=== PATIENT | female | born 1970 | race American Indian/Alaskan Native ===

== ENCOUNTER 2019-02-19 13:56 | Inpatient (IN) | payer MEDICAID, OTHER ==
[2019-02-19] MEDS ORDERED: Digoxin 500 mcg/2ml (0.5 mg/2ml) Inj ONE (14:27)
[2019-02-19] MEDS ORDERED: Digoxin 500 mcg/2ml (0.5 mg/2ml) Inj IVP ONE (14:29)
[2019-02-19 14:35] VITALS: PULSE 120
--- NOTE | 2019-02-19 14:36 | ED PDOC ---
HPI: SOB/CHF/COPD Time Seen by Provider: 02/19/19 14:28 Chief Complaint (Nursing): Shortness Of Breath Chief Complaint (Provider): Shortness Of Breath History Per: Patient History/Exam Limitations: no limitations Onset/Duration Of Symptoms: Days (x1) Current Symptoms Are (Timing): Still Present Additional Complaint(s): 48 year old female with medical history of hypertension and hypothyroidism, presents to the emergency department with a complaint of palpitations associated with shortness of breath and chest heaviness since 0900 earlier today. She denies any nausea, vomiting, or dizziness. PCP: none provided Past Medical History Reviewed: Historical Data, Nursing Documentation, Vital Signs Vital Signs: Last Vital Signs Temp 95.1 F L 02/19/19 14:02 Pulse 163 H 02/19/19 14:02 Resp 19 02/19/19 14:02 BP 148/76 02/19/19 14:02 Pulse Ox 100 02/19/19 14:02 - Medical History PMH: HTN, Hypothyroidism - Family History Family History: States: Unknown Family Hx - Allergies Allergies/Adverse Reactions: Allergies Allergy/AdvReac Type Severity Reaction Status Date / Time No Known Allergies Allergy Verified 02/19/19 14:07 Review of Systems ROS Statement: Except As Marked, All Systems Reviewed And Found Negative Cardiovascular: Positive for: Chest Pain (heaviness), Palpitations Respiratory: Positive for: Shortness of Breath Gastrointestinal: Negative for: Nausea, Vomiting Neurological: Negative for: Dizziness Physical Exam - Reviewed Nursing Documentation Reviewed: Yes Vital Signs Reviewed: Yes - Physical Exam Cardiovascular/Chest: Positive for: Tachycardia (@160 BMP), Irregularly Irregular Respiratory: Positive for: Normal Breath Sounds. Negative for: Wheezing, Respiratory Distress - ECG O2 Sat by Pulse Oximetry: 100 (RA) Pulse Ox Interpretation: Normal Medical Decision Making Medical Decision Making: Time: 1428 Initial Plan: * EKG * Labs * CXR * IV fluids Time: 1433 --EKG: Atrial fibrillation with rapid ventricular response at 100s-160s. Nonspecific ST changes. B/P at 148/75. Patient treated with 25mg Cardizem IVP and 0.5mg Lanoxin IVP. Time: 1435 --Repeat vitals: slowed to ventricular response of 100s-160s. B/P at 119/74. Additional Eliquis PO ordered. Patient is admitted to telemetry unit under Dr. Marquez's service for observation for further treatment of hypertension and Afib with RVR. Scribe Attestation: Documented by Layne Chow, acting as a scribe for Tam Eric MD. Provider Scribe Attestation: All medical record entries made by the Scribe were at my direction and personally dictated by me. I have reviewed the chart and agree that the record accurately reflects my personal performance of the history, physical exam, medical decision making, and the department course for this patient. I have also personally directed, reviewed, and agree with the discharge instructions and disposition. Disposition - Clinical Impression Clinical Impression: Atrial fibrillation with RVR - Patient ED Disposition Is Patient to be Admitted: Yes - Disposition Disposition Time: 14:53 Condition: FAIR Forms: [email or web address] (Libyan) - Pt Status Changed To: Hospital Disposition Of: Inpatient - Admit Certification Admit to Inpatient:: After my assessment, the patient will require hospitalization for at least two midnights. This is because of the severity of symptoms shown, intensity of services needed, and/or the medical risk in this patient being treated as an outpatient. - POA Present On Arrival: None
[2019-02-19 14:52] LABS: BASO # 0.1 K/uL (0.0-0.2); BASO % 0.9 % (0.0-2.0); EOS % 0.5 % (0.0-4.0); HEMOGLOBIN 12.6 g/dL (12.0-16.0); LYMPH # 3.5 K/uL (1.0-4.3); LYMPH % 34.3 % (20.0-40.0); MEAN CELL VOLUME 90.1 fl (81.0-99.0); MEAN CORPUSCULAR HEMOGLOBIN 29.9 pg (27.0-31.0); MEAN CORPUSCULAR HGB CONC 33.2 g/dL (33.0-37.0); MEAN PLATELET VOLUME 9.4 fl (7.2-11.7); MONO # 0.7 K/uL (0.0-0.8); MONO % 6.7 % (0.0-10.0); NEUT # 5.8 K/uL (1.8-7.0); NEUT % 57.6 % (50.0-75.0); NRBC % 0.1 % (0.0-0.0); RBC 4.22 Mil/uL (3.80-5.20); RED CELL DISTRIBUTION WIDTH 14.5 % (11.5-14.5); WHITE BLOOD COUNT 10.1 K/uL (4.8-10.8)
[2019-02-19 15:14] LABS: ALB/GLOB RATIO 1.2 (1.0-2.1); ALBUMIN 4.7 g/dL (3.5-5.0); BLOOD UREA NITROGEN 13 mg/dl (7-17); CALCIUM 9.4 mg/dL (8.4-10.2); GFR NON-AFRICAN AMERICAN > 60
[2019-02-19 15:19] LABS: ALT/SGPT 23 U/L (9-52); AST/SGOT 26 U/L (14-36)
--- NOTE | 2019-02-19 15:27 | CP.PCM.HP ---
<JenniferCarlos - Last Filed: 02/19/19 15:32> History of Present Illness - History of Present Illness History of Present Illness: 48 y/o F with a PMHx of HTN presented to ED complaining of palpitations that began last night. Pt reports some mild SOB since this morning. Pt was found to have Atrial fibrillation at ED. Pt reports extensive family Hx of thyroid disorders. Pt recently moved from [place]. Pt denies fever, chills, hot/cold intolerance, visual disturbances, chest pain, nausea, vomiting, abdominal pain, diarrhea, constipation. --LMP 2 weeks ago, Menses are regular every month with normal blood loss as per pt. PMD: None NKDA Meds: Amlodipine 10mg PO daily, Zolpidem 5mg PO HS PRN. -PMHx: HTN and insomnia -PSHx: Tonsilectomy -FHx: Mother , had DM2, hypothyroidism and CHF. 1 sister has hyperthyroidism and another siter has hypothyroidism. -SHx: No tobacco. Occasional alcohol. No rec drugs. ED Course: --Vital signs: HR 163, RR 26. --troponin neg x1. --EKG showed Afib with RVR --CXR will be performed. --Cardizen 25mg IV administered. Present on Admission - Present on Admission Any Indicators Present on Admission: No History of DVT/PE: No History of Uncontrolled Diabetes: No Review of Systems - Constitutional Constitutional: absent: Chills, Fatigue, Fever - EENT Eyes: absent: Change in Vision Nose/Mouth/Throat: absent: Nasal Congestion, Sore Throat, Tongue Swelling, Neck Pain, Neck Mass - Cardiovascular Cardiovascular: Palpitations. absent: Chest Pain, Claudication, Diaphoresis, Leg Edema - Respiratory Respiratory: Dyspnea. absent: Cough, Snoring - Gastrointestinal Gastrointestinal: absent: Abdominal Pain, Constipation, Diarrhea, Dyspepsia, Nausea, Vomiting - Genitourinary Genitourinary: absent: Dysuria, Flank Pain, Nocturia - Neurological Neurological: absent: Abnormal Movements, Frequent Falls, Headaches, Tremor, Weakness Past Patient History - Infectious Disease Hx of Infectious Diseases: None - Past Social History Smoking Status: Never Smoked - CARDIAC Hx Hypertension: Yes - ENDOCRINE/METABOLIC Hx Hypothyroidism: Yes - PSYCHIATRIC Hx Substance Use: No - SURGICAL HISTORY Hx Surgeries: Yes Hx Tonsillectomy: Yes Meds Allergies/Adverse Reactions: Allergies Allergy/AdvReac Type Severity Reaction Status Date / Time No Known Allergies Allergy Verified 02/19/19 14:07 Results - Vital Signs Recent Vital Signs: Last Vital Signs Temp 95.1 F L 02/19/19 14:02 Pulse 99 H 02/19/19 14:55 Resp 17 02/19/19 14:35 BP 120/89 02/19/19 14:55 Pulse Ox 100 02/19/19 14:55 - Labs Result Diagrams: 02/19/19 14:30 02/19/19 14:30 Labs: Laboratory Results - last 24 hr 02/19/19 02/19/19 14:30 14:30 WBC 10.1 RBC 4.22 Hgb 12.6 Hct 38.0 MCV 90.1 MCH 29.9 MCHC 33.2 RDW 14.5 Plt Count 283 MPV 9.4 Neut % (Auto) 57.6 Lymph % (Auto) 34.3 [place] % (Auto) 6.7 Eos % (Auto) 0.5 Baso % (Auto) 0.9 Neut # (Auto) 5.8 Lymph # (Auto) 3.5 [place] # (Auto) 0.7 Eos # (Auto) 0.0 Baso # (Auto) 0.1 Sodium 140 Potassium 4.2 Chloride 104 Carbon Dioxide 23 Anion Gap 17 BUN 13 Creatinine 0.7 Est GFR ( Amer) > 60 Est GFR (Non-Af Amer) > 60 Random Glucose 113 H Calcium 9.4 Total Bilirubin 0.5 AST 26 ALT 23 Alkaline Phosphatase 100 Troponin I < 0.0120 Total Protein 8.8 H Albumin 4.7 Globulin 4.1 H Albumin/Globulin Ratio 1.2 Assessment & Plan - Assessment and Plan (Free Text) Assessment: 48 y/o F with a PMHx of HTN and morbid obesity is admitted for evaluation and management of atrial fibrillation with rapid ventricular response. PLAN: >Atrial Fibrillation with RVR --New onset --S/P rate control with Cardizem. --Admit to telemetry --Cardiac continuous monitoring. --Cardiology consult, Dr Lisette Newman. --Eliquis ordered. --Thyroid panel ordered. >Essential HTN --Chronic, controlled --C/w home meds: PO Amlodipine >Morbid obesity --HbA1c and lipid ordered --Thyroid panel ordered. >Insomnia --C/w home medL PRN Zolpidem 5mg. >DVT Prophylaxis --SCD --Eliquis initiated. Case discussed with Dr Jimmy Rodriguez PGY-2 - Date & Time Date: 02/19/19 Time: 15:53 <Brando Marquez - Last Filed: 02/20/19 15:11> Results - Vital Signs Recent Vital Signs: Last Vital Signs Temp 97.7 F 02/20/19 13:00 Pulse 93 H 02/20/19 13:00 Resp 18 02/20/19 13:00 BP 122/78 02/20/19 13:00 Pulse Ox 94 L 02/20/19 13:00 - Labs Result Diagrams: 02/20/19 04:25 02/20/19 04:25 Labs: Laboratory Results - last 24 hr 02/19/19 02/19/19 02/19/19 14:30 16:05 16:05 WBC RBC Hgb Hct MCV MCH MCHC RDW Plt Count Sodium 140 Potassium 4.2 Chloride 104 Carbon Dioxide 23 Anion Gap 17 BUN 13 Creatinine 0.7 Est GFR ( Amer) > 60 Est GFR (Non-Af Amer) > 60 Random Glucose 113 H Hemoglobin A1c 5.6 Calcium 9.4 Phosphorus Magnesium Total Bilirubin 0.5 AST 26 ALT 23 Alkaline Phosphatase 100 Troponin I < 0.0120 Total Protein 8.8 H Albumin 4.7 Globulin 4.1 H Albumin/Globulin Ratio 1.2 Triglycerides 78 Cholesterol 170 LDL Cholesterol Direct 100 HDL Cholesterol 50 Free T4 Total T3 2.11 TSH 3rd Generation 0.73 02/19/19 02/20/19 02/20/19 16:05 04:25 04:25 WBC 6.8 RBC 3.85 Hgb 11.7 L Hct 34.6 MCV 89.9 MCH 30.5 MCHC 33.9 RDW 14.8 H Plt Count 258 Sodium 137 Potassium 3.8 Chloride 104 Carbon Dioxide 24 Anion Gap 13 BUN 9 Creatinine 0.7 Est GFR ( Amer) > 60 Est GFR (Non-Af Amer) > 60 Random Glucose 103 Hemoglobin A1c Calcium 9.0 Phosphorus 3.7 Magnesium 2.0 Total Bilirubin 0.6 AST 20 ALT 25 Alkaline Phosphatase 84 Troponin I Total Protein 7.4 Albumin 3.9 Globulin 3.5 Albumin/Globulin Ratio 1.1 Triglycerides Cholesterol LDL Cholesterol Direct HDL Cholesterol Free T4 1.02 Total T3 TSH 3rd Generation Assessment & Plan - Assessment and Plan (Free Text) Assessment: Patient was personally seen and examined by me in rounds with residents. Available labs and diagnostic data reviewed. Case, Patient's condition and management plan discussed with residents in rounds. Agree with resident's progress note. Plan: As ordered.
--- NOTE | 2019-02-19 16:13 | RAD ---
Date of service: 02/19/2019 HISTORY: afib rvr COMPARISON: No prior. FINDINGS: LUNGS: The lungs are well inflated and clear. PLEURA: No pleural effusions or pneumothorax. CARDIOVASCULAR: There is mild cardiomegaly. No aortic atherosclerotic calcifications present. OSSEOUS STRUCTURES: Within normal limits for the patient's age. VISUALIZED UPPER ABDOMEN: Normal. OTHER FINDINGS: None. IMPRESSION: No active pulmonary disease.
[2019-02-19 17:24] LABS: T3 2.11 nmol/L (1.49-2.60)
--- NOTE | 2019-02-19 23:44 | CARD ---
APPROVED REPORT Date of service: 02/19/2019 EKG Measurement Heart [id number] <Conclusion> Atrial fibrillation with rapid ventricular response Nonspecific ST and T wave abnormality Abnormal ECG
[2019-02-20 06:06] LABS: HEMOGLOBIN 11.7 g/dL (12.0-16.0); MEAN CELL VOLUME 89.9 fl (81.0-99.0); MEAN CORPUSCULAR HEMOGLOBIN 30.5 pg (27.0-31.0); MEAN CORPUSCULAR HGB CONC 33.9 g/dL (33.0-37.0); RBC 3.85 Mil/uL (3.80-5.20); RED CELL DISTRIBUTION WIDTH 14.8 % (11.5-14.5); WHITE BLOOD COUNT 6.8 K/uL (4.8-10.8)
[2019-02-20 06:30] LABS: ALB/GLOB RATIO 1.1 (1.0-2.1); ALBUMIN 3.9 g/dL (3.5-5.0); ALT/SGPT 25 U/L (9-52); AST/SGOT 20 U/L (14-36); BLOOD UREA NITROGEN 9 mg/dl (7-17); GFR NON-AFRICAN AMERICAN > 60
--- NOTE | 2019-02-20 09:18 | CP.PCM.CON ---
History of Present Illness - History of Present Illness History of Present Illness: 48 y/o b/f admitted with Atrial fibrillation w/ RVR pt has never had this before EKG on admission: AF w/ RVR Telemetry: AF @ 80-85 BPM on cardizem drip Troponin: neg PMH: HTN Hypothyroid Meds: amlodipine 10mg Daily Past Patient History - Infectious Disease Hx of Infectious Diseases: None - Past Medical History & Family History Past Medical History?: Yes - Past Social History Smoking Status: Never Smoked - CARDIAC Hx Atrial Fibrillation: Yes Hx Hypertension: Yes - ENDOCRINE/METABOLIC Hx Hypothyroidism: Yes - MUSCULOSKELETAL/RHEUMATOLOGICAL Hx Falls: No - PSYCHIATRIC Hx Substance Use: No - SURGICAL HISTORY Hx Surgeries: Yes Hx Tonsillectomy: Yes - ANESTHESIA Hx Anesthesia: Yes Hx Anesthesia Reactions: No Meds Allergies/Adverse Reactions: Allergies Allergy/AdvReac Type Severity Reaction Status Date / Time No Known Allergies Allergy Verified 02/19/19 14:07 - Medications Medications: Current Medications Amlodipine Besylate (Norvasc) 10 mg PO DAILY [facility] Last Admin: 02/20/19 08:47 Dose: 10 mg Apixaban (Eliquis) 5 mg PO BID [facility]; Protocol Last Admin: 02/20/19 08:47 Dose: 5 mg Diltiazem HCl 125 mg/ Sodium (Chloride) 125 mls @ 5 mls/hr IV .Q24H ONE; Protocol Stop: 02/20/19 14:28 Last Admin: 02/19/19 14:55 Dose: 5 mg/hr, 5 mls/hr Zolpidem Tartrate (Ambien) 5 mg PO HS PRN PRN Reason: Insomnia Last Admin: 02/19/19 22:16 Dose: 5 mg Results - Vital Signs Recent Vital Signs: Last Vital Signs Temp 98.4 F 02/20/19 08:47 Pulse 108 H 02/20/19 08:47 Resp 20 02/20/19 08:47 BP 118/81 02/20/19 08:47 Pulse Ox 95 02/20/19 08:47 - Labs Result Diagrams: 02/20/19 04:25 02/20/19 04:25 Labs: Laboratory Results - last 24 hr 02/19/19 02/19/19 02/19/19 14:30 14:30 16:05 WBC 10.1 RBC 4.22 Hgb 12.6 Hct 38.0 MCV 90.1 MCH 29.9 MCHC 33.2 RDW 14.5 Plt Count 283 MPV 9.4 Neut % (Auto) 57.6 Lymph % (Auto) 34.3 [place] % (Auto) 6.7 Eos % (Auto) 0.5 Baso % (Auto) 0.9 Neut # (Auto) 5.8 Lymph # (Auto) 3.5 [place] # (Auto) 0.7 Eos # (Auto) 0.0 Baso # (Auto) 0.1 Sodium 140 Potassium 4.2 Chloride 104 Carbon Dioxide 23 Anion Gap 17 BUN 13 Creatinine 0.7 Est GFR ( Amer) > 60 Est GFR (Non-Af Amer) > 60 Random Glucose 113 H Hemoglobin A1c Calcium 9.4 Phosphorus Magnesium Total Bilirubin 0.5 AST 26 ALT 23 Alkaline Phosphatase 100 Troponin I < 0.0120 Total Protein 8.8 H Albumin 4.7 Globulin 4.1 H Albumin/Globulin Ratio 1.2 Triglycerides 78 Cholesterol 170 LDL Cholesterol Direct 100 HDL Cholesterol 50 Free T4 Total T3 2.11 TSH 3rd Generation 0.73 02/19/19 02/19/19 02/20/19 16:05 16:05 04:25 WBC 6.8 RBC 3.85 Hgb 11.7 L Hct 34.6 MCV 89.9 MCH 30.5 MCHC 33.9 RDW 14.8 H Plt Count 258 MPV Neut % (Auto) Lymph % (Auto) [place] % (Auto) Eos % (Auto) Baso % (Auto) Neut # (Auto) Lymph # (Auto) [place] # (Auto) Eos # (Auto) Baso # (Auto) Sodium Potassium Chloride Carbon Dioxide Anion Gap BUN Creatinine Est GFR ( Amer) Est GFR (Non-Af Amer) Random Glucose Hemoglobin A1c 5.6 Calcium Phosphorus Magnesium Total Bilirubin AST ALT Alkaline Phosphatase Troponin I Total Protein Albumin Globulin Albumin/Globulin Ratio Triglycerides Cholesterol LDL Cholesterol Direct HDL Cholesterol Free T4 1.02 Total T3 TSH 3rd Generation 02/20/19 04:25 WBC RBC Hgb Hct MCV MCH MCHC RDW Plt Count MPV Neut % (Auto) Lymph % (Auto) [place] % (Auto) Eos % (Auto) Baso % (Auto) Neut # (Auto) Lymph # (Auto) [place] # (Auto) Eos # (Auto) Baso # (Auto) Sodium 137 Potassium 3.8 Chloride 104 Carbon Dioxide 24 Anion Gap 13 BUN 9 Creatinine 0.7 Est GFR ( Amer) > 60 Est GFR (Non-Af Amer) > 60 Random Glucose 103 Hemoglobin A1c Calcium 9.0 Phosphorus 3.7 Magnesium 2.0 Total Bilirubin 0.6 AST 20 ALT 25 Alkaline Phosphatase 84 Troponin I Total Protein 7.4 Albumin 3.9 Globulin 3.5 Albumin/Globulin Ratio 1.1 Triglycerides Cholesterol LDL Cholesterol Direct HDL Cholesterol Free T4 Total T3 TSH 3rd Generation Assessment & Plan (1) Atrial fibrillation with RVR Assessment and Plan: I have stopped the amlodipine and started pt on Metoprolol 50mg daily Pt can be weaned off of cardizem drip Status: Acute (2) Essential (primary) hypertension Status: Acute
[2019-02-20] MEDS: Metoprolol Succinate 50 mg XL Tab PO SCH (10:05)
--- NOTE | 2019-02-20 22:54 | PN ---
DATE: 02/20/2019 SUBJECTIVE: The patient seen and examined. Interim events noted. Cardiology consult is pending. The patient feels better. No chest pain. No palpitation. No shortness of breath. PHYSICAL EXAMINATION: GENERAL: The patient is in no acute distress. VITAL SIGNS: Stable. HEART: S1, S2. Normal. Regular. LUNGS: Good bilateral air exchange. ABDOMEN: Soft, nontender. EXTREMITIES: No edema. No calf swelling. No tenderness. No acute ischemia. CENTRAL NERVOUS SYSTEM: Essentially unchanged. LABORATORY DATA: Available diagnostic data reviewed. Telemetry monitoring shows AFib with controlled ventricular rate. ASSESSMENT AND PLAN: The patient is medically stable. Heart rate seems to be controlled. PLAN: As ordered. Brando Marquez MD
[2019-02-21 06:40] LABS: MEAN CELL VOLUME 89.9 fl (81.0-99.0); MEAN CORPUSCULAR HEMOGLOBIN 30.3 pg (27.0-31.0); MEAN CORPUSCULAR HGB CONC 33.7 g/dL (33.0-37.0); RBC 3.97 Mil/uL (3.80-5.20); RED CELL DISTRIBUTION WIDTH 14.4 % (11.5-14.5); WHITE BLOOD COUNT 7.4 K/uL (4.8-10.8)
[2019-02-21 06:53] LABS: ALBUMIN 3.8 g/dL (3.5-5.0); BLOOD UREA NITROGEN 11 mg/dl (7-17); CALCIUM 9.1 mg/dL (8.4-10.2); GFR NON-AFRICAN AMERICAN > 60
[2019-02-21 06:54] LABS: ALB/GLOB RATIO 1.1 (1.0-2.1); ALT/SGPT 24 U/L (9-52); AST/SGOT 18 U/L (14-36)
[2019-02-21 08:16] VITALS: TEMP 98.2; O2SAT 95
[2019-02-21] MEDS: Metoprolol Succinate 50 mg XL Tab PO SCH (08:40)
[2019-02-21 12:46] VITALS: BP 109/73; PULSE 93; RESP 20
== END 2019-02-21 13:00 | disposition home or self-care (01) | DRG 310 ==
LOC: H.ER 13:56 → H.ERHOLD 14:33 → H.TEL 15:43
PROVIDERS: ADMIT Internal Medicine; ATTEND Internal Medicine
DX: I48.91 Unspecified atrial fibrillation (principal); J44.9 Chronic obstructive pulmonary disease, unspecified; Z79.899 Other long term (current) drug therapy; Z82.49 Family history of ischemic heart disease and other diseases of the circulatory system; Z83.3 Family history of diabetes mellitus; Z83.49 Family history of other endocrine, nutritional and metabolic diseases; G47.00 Insomnia, unspecified; R00.2 Palpitations; E03.9 Hypothyroidism, unspecified; I10 Essential (primary) hypertension